=== PATIENT | male | born 1990 | race Two or more races ===

== ENCOUNTER 2017-03-12 03:05 | Emergency (ER) | payer OTHER ==
[~2017-03-12] VITALS: Ht 185.4 cm; Wt 70.0 kg
[~2017-03-12 03:05] MED LIST: FLEXERIL10 MG PO; MOTRIN800 MG PO; NAPROSYN500 MG PO
[2017-03-12] MEDS ORDERED: PROVENTIL HFA6.7 GM IH (04:45)
[2017-03-12] MEDS ORDERED: PREDNISONE50 MG PO (04:45)
[2017-03-12] MEDS ORDERED: ZITHROMAX Z-PA250 MG PO (04:45)
[2017-03-12 04:55] VITALS: BP 127/74
== END 2017-03-12 04:56 | disposition home or self-care (01) ==
LOC: EME 03:05
DX: J20.9 Acute bronchitis, unspecified (principal); F17.200 Nicotine dependence, unspecified, uncomplicated
CPT/HCPCS: 71020; 94640; 99281; 99283

== ENCOUNTER 2018-06-16 22:47 | Emergency (ER) | payer OTHER ==
[~2018-06-16] VITALS: Ht 182.9 cm; Wt 68.7 kg
[~2018-06-16 22:47] MED LIST changes: +PREDNISONE50 MG PO; +PROVENTIL HFA6.7 GM IH; +ZITHROMAX Z-PA250 MG PO
[2018-06-17 01:37] VITALS: BP 128/68
== END 2018-06-17 01:37 | disposition home or self-care (01) ==
LOC: EME 22:47
DX: S93.402A Sprain of unspecified ligament of left ankle, initial encounter (principal); X50.1XXA Overexertion from prolonged static or awkward postures, initial encounter; Y93.K1 Activity, walking an animal; F17.200 Nicotine dependence, unspecified, uncomplicated
CPT/HCPCS: 73630; 99281; 99284